=== PATIENT | female | born 2000 | race Caucasian/White ===

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

== ENCOUNTER 2018-07-14 19:33 | Emergency (ER) | payer MEDICAID ==
[~2018-07-14] VITALS: Ht 157.5 cm; Wt 54.0 kg
[2018-07-14 19:42] VITALS: BP 145/83
[2018-07-14] MEDS ORDERED: LORazepam 1 MG tablet PO ONE (20:10)
== END 2018-07-14 20:38 | disposition home or self-care (01) ==
LOC: ER 19:33
DX: F41.9 Anxiety disorder, unspecified (principal); F32.9 Major depressive disorder, single episode, unspecified; Z79.899 Other long term (current) drug therapy
CPT/HCPCS: 93005; 99284

== ENCOUNTER 2019-02-28 17:11 | Emergency (ER) | payer MEDICAID ==
[~2019-02-28] VITALS: Ht 157.5 cm; Wt 52.0 kg
[2019-02-28 17:39] LABS: URINE HCG NEGATIVE (NEG)
[2019-02-28 17:40] LABS: CLARITY,URINE SLIGHTLY CLOUDY (Clear); COLOR,URINE ORANGE (Yellow); UA COLLECTION TYPE CLN CATCH MIDSTREAM
[2019-02-28 17:47] LABS: BACTERIA,URINE 1+ /HPF (Neg); MUCUS STRANDS NONE SEEN /LPF (Neg); SQUAMOUS EPITHELIAL CELL,UR MANY /LPF (FEW); WBC,URINE 0-4 /HPF (0-4)
[2019-02-28 17:49] LABS: RBC,URINE 0-2 /HPF (0-2)
[2019-02-28 17:50] LABS: AMORPHOUS PHOSPHATES 4+
[2019-02-28] MEDS ORDERED: SULF1TAB49 PO (19:58)
--- NOTE | 2019-02-28 20:15 | NUR ---
PT LEFT WITHOUT D/C PAPERWORK AND RX. PLACED CALL TO PT PHONE # ON FILE. PT TO RETURN TO ED TO COMPLETE D/C.
[2019-02-28 20:32] VITALS: BP 122/70
== END 2019-02-28 20:35 | disposition home or self-care (01) ==
LOC: ER 17:11
DX: N39.0 Urinary tract infection, site not specified (principal); N89.8 Other specified noninflammatory disorders of vagina; F41.9 Anxiety disorder, unspecified; F32.9 Major depressive disorder, single episode, unspecified; F12.90 Cannabis use, unspecified, uncomplicated; F10.99 Alcohol use, unspecified with unspecified alcohol-induced disorder; Z79.899 Other long term (current) drug therapy; Y90.9 Presence of alcohol in blood, level not specified
CPT/HCPCS: 81001; 81025; 87210; 99283

== ENCOUNTER 2019-03-01 18:10 | Emergency (ER) | payer MEDICAID ==
[~2019-03-01] VITALS: Ht 157.5 cm; Wt 53.0 kg
[~2019-03-01 18:10] MED LIST changes: +SULF1TAB49 PO
[2019-03-01 18:19] VITALS: BP 144/88
[2019-03-01] MEDS ORDERED: ketorolac tromethamine 15mg/ml inj. IM ONE (20:45)
== END 2019-03-01 21:53 | disposition home or self-care (01) ==
LOC: ER 18:11
DX: N39.0 Urinary tract infection, site not specified (principal); F41.9 Anxiety disorder, unspecified; F32.9 Major depressive disorder, single episode, unspecified; F12.90 Cannabis use, unspecified, uncomplicated; F10.99 Alcohol use, unspecified with unspecified alcohol-induced disorder; Z79.899 Other long term (current) drug therapy; Y90.9 Presence of alcohol in blood, level not specified
CPT/HCPCS: 96372; 99284; J1885

== ENCOUNTER 2019-12-06 19:12 | Emergency (ER) | payer MEDICAID ==
[~2019-12-06] VITALS: Ht 157.5 cm; Wt 54.5 kg
[~2019-12-06 19:12] MED LIST changes: -SULF1TAB49 PO
[2019-12-06 20:32] LABS: BASOPHILS % (AUTO) 0.6 % (0-1); EOSINOPHILS # (AUTO) 0.1 X10'3 (0-0.9); EOSINOPHILS % (AUTO) 0.7 % (0-6); HEMATOCRIT 37.3 % (35.0-45.0); HEMOGLOBIN 12.5 g/dl (12.0-16.0); LYMPHOCYTES # (AUTO) 2.5 X10'3 (1.1-4.8); LYMPHOCYTES % (AUTO) 29.9 % (21-51); MEAN CORPUSCULAR HEMOGLOBIN 30.6 PG (27.0-31.0); MEAN CORPUSCULAR HGB CONC 33.6 g/dL (33.0-36.5); MEAN CORPUSCULAR VOLUME 91.1 FL (78-98); MEAN PLATELET VOLUME 9.4 FL (7.4-10.4); MONOCYTES # (AUTO) 0.7 X10'3 (0-0.9); MONOCYTES % (AUTO) 8.5 % (2-12); NEUTROPHILS % (AUTO) 60.3 % (42-75); PLATELET COUNT 198 X10'3 (140-440); WHITE BLOOD COUNT 8.3 X10'3 (4.5-11.0)
[2019-12-06 20:42] LABS: ALANINE AMINOTRANSFERASE 21 U/L (12-78); ALBUMIN 3.9 G/DL (3.4-5.0); ALBUMIN/GLOBULIN RATIO 1.1 (1.1-1.5); ALKALINE PHOSPHATASE 82 IU/L (46-116); ANION GAP 6 (8-16); ASPARTATE AMINO TRANSFERASE 10 U/L (10-37); BILIRUBIN,TOTAL 0.2 MG/DL (0.1-1.0); BLOOD UREA NITROGEN 9 MG/DL (7-18); CHLORIDE 105 MMOL/L (99-107); CREATININE 0.69 MG/DL (0.40-0.90); GLUCOSE 86 MG/DL (70-104); POTASSIUM 3.9 MMOL/L (3.5-5.1); SODIUM 141 MMOL/L (135-145); TOTAL CARBON DIOXIDE 29.9 MMOL/L (24-32); TOTAL PROTEIN 7.5 G/DL (6.4-8.2); eGFR > 90 ML/MIN
[2019-12-06 21:00] VITALS: BP 112/65
[2019-12-06 21:03] LABS: URINE HCG NEGATIVE (NEG)
== END 2019-12-06 21:01 | disposition home or self-care (01) ==
LOC: ER 19:13
DX: R00.2 Palpitations (principal); R51 Headache; R53.83 Other fatigue; F41.9 Anxiety disorder, unspecified; F32.9 Major depressive disorder, single episode, unspecified; Z72.89 Other problems related to lifestyle; Z87.891 Personal history of nicotine dependence; Z79.899 Other long term (current) drug therapy
CPT/HCPCS: 36415; 80053; 81025; 85025; 93005; 99284

== ENCOUNTER 2020-08-29 21:29 | Emergency (ER) | payer MEDICAID ==
[~2020-08-29] VITALS: Ht 157.5 cm; Wt 52.3 kg
[2020-08-29] MEDS ORDERED: acetaminophen 325mg tablet PO ONE (22:10)
[2020-08-29 22:36] LABS: BASOPHILS % (AUTO) 0.6 % (0-1); EOSINOPHILS % (AUTO) 0.1 % (0-6); HEMATOCRIT 38.8 % (35.0-45.0); LYMPHOCYTES # (AUTO) 0.8 X10'3 (1.1-4.8); LYMPHOCYTES % (AUTO) 25.3 % (21-51); MEAN CORPUSCULAR HEMOGLOBIN 31.3 PG (27.0-31.0); MEAN CORPUSCULAR HGB CONC 33.5 g/dL (33.0-36.5); MEAN CORPUSCULAR VOLUME 93.4 FL (78-98); MEAN PLATELET VOLUME 9.8 FL (7.4-10.4); MONOCYTES # (AUTO) 0.4 X10'3 (0-0.9); MONOCYTES % (AUTO) 12.9 % (2-12); NEUTROPHILS # (AUTO) 1.9 X10'3 (1.8-7.7); NEUTROPHILS % (AUTO) 61.1 % (42-75); PLATELET COUNT 128 X10'3 (140-440); RED BLOOD COUNT 4.15 X10'6 (4.20-5.60); RED CELL DISTRIBUTION WIDTH 13.6 % (11.5-14.5)
[2020-08-29 22:49] LABS: ALANINE AMINOTRANSFERASE 17 U/L (12-78); ALBUMIN/GLOBULIN RATIO 1.1 (1.1-1.5); ALKALINE PHOSPHATASE 72 IU/L (46-116); ANION GAP 5 (8-16); ASPARTATE AMINO TRANSFERASE 14 U/L (10-37); BILIRUBIN,TOTAL 0.3 MG/DL (0.1-1.0); BLOOD UREA NITROGEN 9 MG/DL (7-18); CALCIUM 8.5 MG/DL (8.5-10.1); CHLORIDE 102 MMOL/L (99-107); CREATININE 0.75 MG/DL (0.40-0.90); GLUCOSE 96 MG/DL (70-104); POTASSIUM 3.8 MMOL/L (3.5-5.1); SODIUM 134 MMOL/L (135-145); TOTAL CARBON DIOXIDE 27.1 MMOL/L (24-32); TOTAL PROTEIN 7.7 G/DL (6.4-8.2); eGFR > 90 ML/MIN
[2020-08-29 22:56] VITALS: BP 120/74
[2020-08-29 23:13] LABS: PLATELET ESTIMATE DECREASED; TOTAL CELLS COUNTED 100
[2020-08-29 23:23] LABS: CLARITY,URINE CLOUDY (Clear); COLOR,URINE YELLOW (Yellow); GLUCOSE, URINE NEGATIVE (Neg); KETONES,URINE TRACE mg/dl (Neg); LEUKOCYTE ESTERASE ,URINE NEGATIVE (Neg); NITRITES, URINE NEGATIVE (Neg); OCCULT BLOOD,URINE TRACE-INTACT (Neg); PH,URINE 8.5 (4.8-8.0); PROTEIN,URINE NEGATIVE (Neg)
[2020-08-29 23:28] LABS: UA COLLECTION TYPE CLN CATCH MIDSTREAM
[2020-08-29 23:29] LABS: AMORPHOUS PHOSPHATES 4+; SQUAMOUS EPITHELIAL CELL,UR MANY /LPF (FEW)
[2020-08-29 23:30] LABS: BACTERIA,URINE FEW /HPF (Neg); WBC,URINE 0-4 /HPF (0-4)
== END 2020-08-29 23:47 | disposition home or self-care (01) ==
LOC: ER 21:30
DX: B34.9 Viral infection, unspecified (principal); Z20.822 Contact with and (suspected) exposure to COVID-19; R50.9 Fever, unspecified; R51.9 Headache, unspecified; R53.83 Other fatigue; F41.9 Anxiety disorder, unspecified; F32.9 Major depressive disorder, single episode, unspecified; Z72.89 Other problems related to lifestyle; Z79.899 Other long term (current) drug therapy
CPT/HCPCS: 36415; 80053; 81001; 83605; 84145; 85007; 85025; 87040; 87635; 93005; 99284; C9803

== ENCOUNTER 2022-03-13 11:45 | Emergency (ER) | payer MEDICAID ==
[~2022-03-13] VITALS: Ht 157.5 cm; Wt 55.0 kg
[2022-03-13] MEDS ORDERED: ondansetron/PF 4mg/2ml inj IV ONE (12:20)
[2022-03-13] MEDS ORDERED: normal saline 1000ML IV soln IVB ONE (12:20)
[2022-03-13] MEDS ORDERED: ONDA4TAB12 PO (12:40)
[2022-03-13 12:42] LABS: BASOPHILS % (AUTO) 0.2 % (0-1); EOSINOPHILS % (AUTO) 0.1 % (0-6); HEMATOCRIT 39.8 % (35.0-45.0); HEMOGLOBIN 13.1 g/dl (12.0-16.0); LYMPHOCYTES # (AUTO) 0.5 X10'3 (1.1-4.8); LYMPHOCYTES % (AUTO) 3.9 % (21-51); MEAN CORPUSCULAR HEMOGLOBIN 30.3 PG (27.0-31.0); MEAN CORPUSCULAR HGB CONC 32.9 g/dL (33.0-36.5); MEAN CORPUSCULAR VOLUME 92.1 FL (78-98); MEAN PLATELET VOLUME 9.3 FL (7.4-10.4); MONOCYTES # (AUTO) 0.4 X10'3 (0-0.9); MONOCYTES % (AUTO) 2.7 % (2-12); NEUTROPHILS # (AUTO) 12.5 X10'3 (1.8-7.7); NEUTROPHILS % (AUTO) 93.1 % (42-75); PLATELET COUNT 197 X10'3 (140-440); RED BLOOD COUNT 4.33 X10'6 (4.20-5.60); WHITE BLOOD COUNT 13.4 X10'3 (4.5-11.0)
[2022-03-13 12:57] LABS: ALANINE AMINOTRANSFERASE 22 U/L (12-78); ALBUMIN/GLOBULIN RATIO 1.1 (1.1-1.5); ALKALINE PHOSPHATASE 70 IU/L (46-116); ANION GAP 8 (8-16); ASPARTATE AMINO TRANSFERASE 21 U/L (10-37); BILIRUBIN,TOTAL 0.4 MG/DL (0.1-1.0); BLOOD UREA NITROGEN 12 MG/DL (7-18); BUN/CREATININE RATIO 19.4 (6.6-38.0); CALCIUM 8.7 MG/DL (8.5-10.1); CHLORIDE 105 MMOL/L (99-107); CREATININE 0.62 MG/DL (0.40-0.90); ETHANOL < 0.010 GM/DL (0.0-0.010); GLUCOSE 96 MG/DL (70-104); LIPASE 65 U/L (73-393); MAGNESIUM 1.9 MG/DL (1.5-2.4); POTASSIUM 4.4 MMOL/L (3.5-5.1); SODIUM 139 MMOL/L (135-145); TOTAL CARBON DIOXIDE 26.2 MMOL/L (24-32); TOTAL PROTEIN 7.6 G/DL (6.4-8.2); eGFR > 90 ML/MIN
[2022-03-13 13:28] LABS: CLARITY,URINE CLEAR (Clear); COLOR,URINE YELLOW (Yellow); GLUCOSE, URINE NEGATIVE (Neg); KETONES,URINE 15 mg/dl (Neg); LEUKOCYTE ESTERASE ,URINE NEGATIVE (Neg); NITRITES, URINE NEGATIVE (Neg); OCCULT BLOOD,URINE MODERATE (Neg); PROTEIN,URINE NEGATIVE (Neg); UROBILINOGEN,URINE 0.2 E.U/dL (0.2-1.0)
[2022-03-13 13:30] LABS: UA COLLECTION TYPE CLN CATCH MIDSTREAM
[2022-03-13 13:31] LABS: URINE HCG NEGATIVE (NEG)
[2022-03-13 13:34] LABS: URINE AMPHETAMINE SCREEN NEGATIVE (Neg); URINE BARBITUATE SCREEN NEGATIVE (Neg); URINE BENZODIAZEPINES SCREEN NEGATIVE (Neg); URINE CANNABINOID SCREEN NEGATIVE (Neg); URINE COCAINE SCREEN NEGATIVE (Neg); URINE METHADONE SCREEN NEGATIVE (Neg); URINE OPIATE SCREEN NEGATIVE (Neg); URINE PHENCYCLIDINE SCREEN NEGATIVE (Neg)
[2022-03-13 13:35] LABS: BACTERIA,URINE 1+ /HPF (Neg); MUCUS STRANDS NONE SEEN /LPF (Neg); SQUAMOUS EPITHELIAL CELL,UR MODERATE /LPF (FEW); WBC,URINE 0-4 /HPF (0-4)
[2022-03-13 13:58] VITALS: BP 110/62
== END 2022-03-13 14:00 | disposition home or self-care (01) ==
LOC: ER 11:46
DX: B34.9 Viral infection, unspecified (principal); K29.70 Gastritis, unspecified, without bleeding; E86.0 Dehydration; F41.9 Anxiety disorder, unspecified; F32.A Depression, unspecified; Z72.89 Other problems related to lifestyle; Z79.899 Other long term (current) drug therapy
CPT/HCPCS: 36415; 80053; 80305; 80320; 81001; 81025; 83690; 83735; 85025; 96361; 96374; 99283; J2405; J7030

== ENCOUNTER 2023-12-26 21:42 | Emergency (ER) | payer MEDICAID ==
[~2023-12-26] VITALS: Ht 160 cm; Wt 52.3 kg
[~2023-12-26 21:42] MED LIST changes: +ONDA-243 PO
[2023-12-26 23:27] VITALS: TEMP 98.1
[2023-12-27 00:17] VITALS: BP 118/68; PULSE 62; RESP 20; O2SAT 99
== END 2023-12-27 00:19 | disposition home or self-care (01) ==
LOC: ER 21:43
DX: M79.605 Pain in left leg (principal); M79.662 Pain in left lower leg; F41.9 Anxiety disorder, unspecified; F32.A Depression, unspecified; F17.210 Nicotine dependence, cigarettes, uncomplicated; Z79.899 Other long term (current) drug therapy
CPT/HCPCS: 93971; 99284

== ENCOUNTER 2024-01-21 15:23 | Emergency (ER) | payer MEDICAID ==
[~2024-01-21] VITALS: Ht 157.5 cm; Wt 51.8 kg
[2024-01-21 16:36] VITALS: BP 126/80; PULSE 82; RESP 16; TEMP 98.2; O2SAT 99
== END 2024-01-21 16:37 | disposition home or self-care (01) ==
LOC: ER 15:24
DX: R00.2 Palpitations (principal); F17.290 Nicotine dependence, other tobacco product, uncomplicated
CPT/HCPCS: 93005; 99283

== ENCOUNTER 2024-02-04 21:08 | Emergency (ER) | payer MEDICAID ==
[~2024-02-04] VITALS: Ht 157.5 cm; Wt 52.3 kg
[2024-02-04 21:53] LABS: BASOPHILS # (AUTO) 0.1 X10'3 (0-0.2); BASOPHILS % (AUTO) 0.7 % (0-1); EOSINOPHILS # (AUTO) 0.1 X10'3 (0-0.9); HEMOGLOBIN 11.8 g/dl (12.0-16.0); LYMPHOCYTES # (AUTO) 2.5 X10'3 (1.1-4.8); MONOCYTES # (AUTO) 0.6 X10'3 (0-0.9)
[2024-02-04 21:55] LABS: EOSINOPHILS % (AUTO) 0.9 % (0-6); HEMATOCRIT 35.2 % (35.0-45.0); LYMPHOCYTES % (AUTO) 34.3 % (21-51); MEAN CORPUSCULAR HEMOGLOBIN 30.3 PG (27.0-31.0); MEAN CORPUSCULAR HGB CONC 33.4 g/dL (33.0-36.5); MEAN CORPUSCULAR VOLUME 90.7 FL (78-98); MEAN PLATELET VOLUME 9.1 FL (7.4-10.4); MONOCYTES % (AUTO) 8.6 % (2-12); NEUTROPHILS # (AUTO) 4.1 X10'3 (1.8-7.7); NEUTROPHILS % (AUTO) 55.5 % (42-75); PLATELET COUNT 195 X10'3 (140-440); RED BLOOD COUNT 3.88 X10'6 (4.20-5.60); RED CELL DISTRIBUTION WIDTH 15.2 % (11.5-14.5); WHITE BLOOD COUNT 7.4 X10'3 (4.5-11.0)
[2024-02-04 22:02] LABS: ALANINE AMINOTRANSFERASE 16 U/L (12-78); ALBUMIN 3.8 G/DL (3.4-5.0); ALBUMIN/GLOBULIN RATIO 1.1 (1.1-1.5); ALKALINE PHOSPHATASE 78 IU/L (46-116); ANION GAP 6 (8-16); ASPARTATE AMINO TRANSFERASE 15 U/L (10-37); BILIRUBIN,TOTAL 0.2 MG/DL (0.1-1.0); BLOOD UREA NITROGEN 8 MG/DL (7-18); BUN/CREATININE RATIO 12.3 (10.0-20.0); CALCIUM 8.7 MG/DL (8.5-10.1); CHLORIDE 105 MMOL/L (99-107); CREATININE 0.65 MG/DL (0.40-0.90); GLUCOSE 82 MG/DL (70-104); POTASSIUM 4.2 MMOL/L (3.5-5.1); SODIUM 139 MMOL/L (135-145); TOTAL CARBON DIOXIDE 28.5 MMOL/L (24-32); TOTAL PROTEIN 7.4 G/DL (6.4-8.2); eCRCL 105 ML/MIN; eGFR > 90 ML/MIN
[2024-02-04 22:14] LABS: PRO BRAIN NATRIURETIC PEPTIDE < 30 PG/ML (0-125)
[2024-02-04 23:54] VITALS: BP 116/72; PULSE 79; RESP 16; O2SAT 100
[2024-02-05 00:14] VITALS: TEMP 97.8
== END 2024-02-05 00:17 | disposition home or self-care (01) ==
LOC: ER 21:08
DX: R07.9 Chest pain, unspecified (principal); F41.9 Anxiety disorder, unspecified; F32.A Depression, unspecified; F17.290 Nicotine dependence, other tobacco product, uncomplicated; Z79.899 Other long term (current) drug therapy; Z72.89 Other problems related to lifestyle
CPT/HCPCS: 71045; 80053; 83880; 84484; 85025; 93005; 99285

== ENCOUNTER 2024-02-17 16:21 | Emergency (ER) | payer MEDICAID ==
[~2024-02-17] VITALS: Ht 162.6 cm; Wt 54.5 kg
[2024-02-17 16:38] VITALS: BP 135/88; PULSE 93; RESP 18; O2SAT 94
[2024-02-17] MEDS ORDERED: PROP20TA6 PO (18:33)
[2024-02-17 18:35] VITALS: TEMP 97.6
== END 2024-02-17 18:42 | disposition home or self-care (01) ==
LOC: ER 16:21
DX: R00.2 Palpitations (principal); F41.9 Anxiety disorder, unspecified; F32.A Depression, unspecified; F17.290 Nicotine dependence, other tobacco product, uncomplicated; Z72.89 Other problems related to lifestyle
CPT/HCPCS: 93005; 99283

== ENCOUNTER 2024-03-14 20:00 | Emergency (ER) | payer MEDICAID ==
[~2024-03-14] VITALS: Ht 157.5 cm; Wt 55.2 kg
[~2024-03-14 20:00] MED LIST changes: +PROP20TA6 PO
[2024-03-14] MEDS: cephalexin 250mg capsule PO STA (20:47)
[2024-03-14] MEDS ORDERED: CEPH-585 PO (20:48)
[2024-03-14 21:04] VITALS: BP 115/65; PULSE 64; RESP 18; TEMP 98.6; O2SAT 99
== END 2024-03-14 21:06 | disposition home or self-care (01) ==
LOC: ER 20:01
DX: N61.0 Mastitis without abscess (principal); F41.9 Anxiety disorder, unspecified; F32.A Depression, unspecified; F17.290 Nicotine dependence, other tobacco product, uncomplicated; Z79.899 Other long term (current) drug therapy
CPT/HCPCS: 99283; A6449

== ENCOUNTER 2025-03-21 11:46 | Emergency (ER) | payer MEDICAID ==
[~2025-03-21] VITALS: Ht 157.5 cm; Wt 58.3 kg
[2025-03-21 11:47] VITALS: TEMP 98.5
--- NOTE | 2025-03-21 12:02 | Physician Documentation ---
History of Present Illness ~ Chief Complaint: Urinary Symptoms Stated Complaint: UTI SYMPTOMS Time Seen by MD: 11:55 OK to notify your PCP?: Yes Primary Medical Doctor: [facility] Source: patient, RN/ HPI 24-year-old female returns to the ED after recently being treated for UTI. She was prescribed initially cefdinir but then was called later stating that the culture came back resistant to cefdinir. Patient was then prescribed ciprofloxacin 250 mg one tab twice a day for three days. Patient states he did start feeling a little better initially but then developed a yeast infection and then took one doses of Flagyl. Patient states that her symptoms from the yeast infection did get better initially for day but then or now worse again and she states she has some pressure in her bladder. She denies any fevers9 or chills or flank pain. She has no other concern or complaint at this time Day of Onset: Mar 21, 2025 Medication Reconciliation Allergies: Coded Allergies: No Known Allergies (Unverified , 03/14/24) Scheduled Fluoxetine Hcl (Prozac), 1 CAP PO QAM, (Reported) ONDANSETRON ODT 4mg tablet (Ondansetron Odt), 1 TABLET PO TID Propranolol Hcl (Propranolol Hcl), 1 TAB PO DAILY Past Medical History Past Medical History: Anxiety, Depression Past Surgical History: no surgical history Alcohol Use: Occasionally Drug Use: none Lives with: Mother Lives In: Home Occupation: student Past Social History: Vapes tobacco Review of Systems Constitutional: Denies: chills, fever, weakness Eyes: Denies: pain, blurred vision ENT: Denies: ear pain, nose pain, throat pain, mouth pain Respiratory: Denies: cough, shortness of breath Cardiovascular: Denies: chest pain, palpitations Gastrointestinal: Denies: abdominal pain, nausea, vomiting Genitourinary: Denies: burning, dysuria Female Genitalia: Denies: vaginal discharge, pelvic pain Neurological: Denies: headache, dizziness Musculoskeletal: Denies: pain, swelling Integumentary: Denies: rash, lesions Allergic/Immunologic: Denies: hives, itching Hematologic/Lymphatic: Denies: no symptoms reported Psychiatric: Denies: depression, anxiety Physical Exam Vital Signs: Temperature: 98.5, Source: Oral, Heart Rate: 79, Respiratory Rate: 16, BP: 123/49, Pulse Oximetry: 100, Weight: 58.300 Oxygen Flow Rate: 0 Physical Exam General: Awake and Alert, no acute distress. HEENT: Conjunctiva pink, Sclera clear, Mucus Membranes moist. Neck: Supple without masses and tenderness. Resp: Unlabored. Lungs clear to auscultation bilaterally. Heart: Regular Rate and rhythm, normal S1 and S2 without murmur, rub or gallop. Abdomen: Abdomen is soft, nondistended, mild tenderness to palpation or discomfort in the suprapubic area, abdomen is otherwise nontender to palpation. No rebound or guarding.. Patient does not have any CVA tenderness on either side on exam. Extremities: No cyanosis,clubbing or edema. Skin: Warm and Dry. Progress Results/Orders Results/Orders Completed Orders - ARLENE MENDOZA PAC Fluconazole Tablet (Diflucan Tablet) (03/21/25 14:10) Vital Signs 03/21/25 11:47 Temp 98.5 Pulse 79 Resp 16 B/P (MAP) 123/49 Pulse Ox 100 O2 Flow Rate 0 Laboratory Tests Test 03/21/25 11:52 Urine Specimen Description Cln catch midstream Urine Color Yellow Urine Clarity Cloudy Urine pH 7.5 Urine Specific Diagonal 1.020 Urine Protein Negative Urine Glucose (UA) Negative Urine Ketones Negative Urine Occult Blood Negative Urine Nitrite Negative Urine Bilirubin Negative Urine Urobilinogen 0.2 Urine Leukocyte Esterase Small H Urine RBC None seen Urine WBC 5-10 H Urine Squamous Epithelial Cells Few Urine Amorphous Phosphates 4+ Urine Bacteria Few Urine Culture Indicated Indicated Volume Urine Centrifuged 10 ml Urine HCG, Qualitative Negative Urine Comment Microbiology Date/Time Source Procedure Growth Status 03/21/25 12:34 Urine Clean Catch Midstream Urine Culture - Preliminary Culture received. Resulted Medical Decision Making Additional information obtaine: N/A Findings 24-year-old female returns to the ED after recently being treated for UTI. She was prescribed initially cefdinir but then was called later stating that the culture came back resistant to cefdinir. Patient was then prescribed ciprofloxacin 250 mg one tab twice a day for three days. Patient states he did start feeling a little better initially but then developed a yeast infection and then took one doses of Flagyl. Patient states that her symptoms from the yeast infection did get better initially for day but then or now worse again and she states she has some pressure in her bladder. She denies any fevers9 or chills or flank pain. She has no other concern or complaint at this time. Patient was given dose of Diflucan 150 mg by mouth in the ED today. Prescription of ciprofloxacin 500 mg one tab twice a day for five days sent to patient's pharmacy. Patient will return to ED with any worsening, concerning or changing symptoms. Urinary Diff Dx:Considerations: Include: , Appendicitis, Cholelithiasis, PID, Pyelonephritis, UTI Genital Diff Dx:Considerations: Unlikely: -Complete, - Incomplete, -Inevitable, Ablortion-Missed, -Threatened, Bartholin abscess, Bartholin cyst, Blood loss anemia, Constipation, Cervicitis, Dsymenorrhea, Ectopic , Foreign body, Hormonal, Hidradenitis suppurativa, Intrauterine , Menorrhagia, Menometrorrhagia, Menstrual bleeding, Myomatous uterus, Perianal abscess, Physiologic discharge, Pinworms, PID, Placenta previa, , Precipitous Hct, Trauma, UTI, Vaginitis(osis)- Atrophic, Vaginitis, Vaginitis(osis)-Bacterial, Vaginitis(osis)-Candidal, Vaginitis(osis)-Contact, Vaginitis(osis)-Herpes, Vaginitis(osis)-Trich., Other Departure Disposition: 01 HOME / SELF CARE / HOMELESS Impression: Primary Impression: Acute urinary tract infection Additional Impression: Vulvovaginal candidiasis Condition: Stable Discharge Instructions: Urinary Tract Infection, Adult Additional Instructions: Patient was given dose of Diflucan 150 mg by mouth in the ED today. Prescription of ciprofloxacin 500 mg one tab twice a day for five days sent to patient's pharmacy. Patient will return to ED with any worsening, concerning or changing symptoms. Referrals: NO PRIMARY CARE PROVIDER (PCP) Prescriptions Ciprofloxacin HCl (Ciprofloxacin HCl) 500 Mg Tab 1 TAB PO Q12H for 5 Days, #10 TAB Prov: ARLENE MENDOZA 03/21/25 Fluconazole (Diflucan) 150 Mg Tablet 1 TAB PO ONCE for 1 Day, #1 TAB Prov: ARLENE MENDOZA 03/21/25 Signature Scribe Signature: No scribe Attestation: No scribe NAWAF MENDES NP Mar 21, 2025 12:02 ARLENE MENDOZA Mar 21, 2025 14:23
[2025-03-21 12:16] LABS: URINE HCG NEGATIVE (NEG)
[2025-03-21 12:17] LABS: LEUKOCYTE ESTERASE ,URINE SMALL (Neg); NITRITES, URINE NEGATIVE (Neg); OCCULT BLOOD,URINE NEGATIVE (Neg)
[2025-03-21 12:22] LABS: UA COLLECTION TYPE CLN CATCH MIDSTREAM
[2025-03-21 12:34] LABS: AMORPHOUS PHOSPHATES 4+; SQUAMOUS EPITHELIAL CELL,UR FEW /LPF (FEW)
[2025-03-21] MEDS ORDERED: FLUC150T22 PO (14:34)
[2025-03-21] MEDS ORDERED: CIPR-458 PO (14:34)
[2025-03-21 15:16] VITALS: BP 107/44; PULSE 70; RESP 13; O2SAT 100
== END 2025-03-21 15:18 | disposition home or self-care (01) ==
LOC: ER 11:47
DX: N39.0 Urinary tract infection, site not specified (principal); B37.31 Acute candidiasis of vulva and vagina; F17.290 Nicotine dependence, other tobacco product, uncomplicated; F41.9 Anxiety disorder, unspecified; F32.A Depression, unspecified; Z72.89 Other problems related to lifestyle; Z79.899 Other long term (current) drug therapy
CPT/HCPCS: 36415; 81001; 81025; 87088; 87491; 99283